=== PATIENT | male | born 1945 | race Caucasian/White ===

== ENCOUNTER → 2017-07-22 12:11 | Outpatient (CLI) | payer MEDICARE, SELFPAY ==
[2017-07-22 13:22] LABS: Prostate Specific Ag, Diagnost 1.13 ng/mL (0.0-4.0)
== END ==
PROVIDERS: Visit Provider Urology
DX: R39.89 Other symptoms and signs involving the genitourinary system (principal); N40.0 Benign prostatic hyperplasia without lower urinary tract symptoms
CPT/HCPCS: 36415; 84153

== ENCOUNTER → 2018-07-21 12:27 | Outpatient (CLI) | payer MEDICARE, SELFPAY ==
[2018-07-21 14:06] LABS: Prostate Specific Ag Screen 0.8 ng/mL (0.0-4.0)
== END ==
PROVIDERS: Visit Provider Urology
DX: Z12.5 Encounter for screening for malignant neoplasm of prostate (principal)
CPT/HCPCS: 36415; G0103

== ENCOUNTER → 2019-07-27 12:08 | Outpatient (CLI) | payer MEDICARE, SELFPAY | PROVIDERS: Visit Provider Urology | DX: Z12.5 Encounter for screening for malignant neoplasm of prostate (principal) | CPT/HCPCS: 36415; G0103 ==

== ENCOUNTER → 2020-04-03 10:15 | Outpatient (CLI) | payer MEDICARE, SELFPAY ==
[2020-04-03 10:51] LABS: Basophils # 0.1 K/mm3 (0-0.2); Basophils % 1.2 % (0.1-2.0); Eosinophils # 0.2 K/mm3 (0.0-0.4); Eosinophils % 2.5 % (0.1-12.0); Hematocrit 39.4 % (42.0-52.0); Hemoglobin 13.2 g/dL (14.1-18.0); Lymphocytes # 1.8 K/mm3 (0.7-4.5); Lymphocytes % 25.5 % (10-50); Mean Corpuscular HGB Conc 33.4 g/dL (31.8-35.4); Mean Corpuscular Hemoglobin 31.3 pg (27.0-31.2); Mean Corpuscular Volume 93.7 fl (80-94); Mean Platelet Volume 7.1 fl (7.4-10.4); Monocytes # 0.5 K/mm3 (0.1-1.0); Neutrophils # 4.5 K/mm3 (1.8-7.8); Neutrophils % 63.8 % (37.0-80.0); Platelet Count 357 K/mm3 (142-424); Red Blood Count 4.21 M/mm3 (4.60-6.20); Red Cell Distribution Width 13.7 % (11.5-17.5); White Blood Count 7.1 K/mm3 (4.8-10.8)
[2020-04-03 12:16] LABS: Chloride 96 mmol/L (98-107); Potassium 5.2 mmoL/L (3.5-5.1); Sodium 131 mmol/L (136-145)
[2020-04-03 12:19] LABS: Anion Gap 14.2 mEq/L (5-15); Blood Urea Nitrogen 14 mg/dl (9-20); Calcium 10.3 mg/dl (8.4-10.2); Carbon Dioxide 26 mmol/L (22.0-30.0); Estimated Glomerular Filt Rate 82 ml/min (>60); GFR (African American) 100 ML/MIN (>60); Glucose 106 mg/dl (74-100)
[2020-04-03 12:43] LABS: Coronavirus 19 IgG Antibody Negative (Negative); Coronavirus 19 IgM Antibody Negative (Negative)
== END ==
PROVIDERS: Visit Provider Urology
DX: R31.0 Gross hematuria (principal); Z01.812 Encounter for preprocedural laboratory examination; Z20.822 Contact with and (suspected) exposure to COVID-19
CPT/HCPCS: 36415; 80048; 85025; 86328

== ENCOUNTER 2020-04-05 07:40 | Day surgery (SDC) | payer MEDICARE, SELFPAY ==
[2020-03-28 12:43] VITALS: BMI 24.7
[2020-04-02 11:10] VITALS: BMI 24.7
[2020-04-05] VITALS (13 sets, daily range): BP systolic 97–159; BP diastolic 54–86; PULSE 60–91; RESP 18; TEMP 36.4–43; O2SAT 9–99
--- NOTE | 2020-04-05 09:45 | HMH.ANESCL ---
[facility] Anesthesia Checklist - Patient Identification Patient Identification: Arm Band, Verbal (Name & ) - Structural Data Admitted From: Home Planned Operative Procedure/s: cysto turb Consent for Planned Operative Procedure(s) Verified: Yes Verified Documents: Surgical Consent - Anesthesia Plan Anesthesia Risk discussed: Yes Anesthesia Plan: Verified ASA Class: III Anesthesia Type: General [facility] History Medical History: Reports:: Hyperlipidemia, Hypertension, Transient Ischemic Attacks (TIA) Denies:: Cancer, Diabetes Mellitus Type 1, Diabetes Mellitus Type 2, Internal Pacemaker, MRSA, Seizures *Have you ever received a pneumonia vaccine?: Yes *Have you received a flu vaccine this season?: Yes Other Medical History: Reports: Arthritis Anesthesia experience/problems:: none Other Surgeries: Yes: Appendectomy, Colonoscopy. No: Pacemaker Amputation: No Fractures: No - *Social History Last grade of school completed: High school graduate Smoking Status: Former smoker Tobacco Type: cigarettes Alcohol Intake: current Alcohol Intake Frequency:: 0-2 drinks per day Substance Use Type: denies use *Occupational Status:: retired Housing: house Household Members: family *Travel in the last 8 weeks: None Family Hx:: Unable to obtain, No significant family history
--- NOTE | 2020-04-05 10:21 | HMH.ANESI ---
[facility] Anesthesia Record Part I Intake, IV Amount: 900 Estimated blood loss (mL): 2 Urine output (mL): 0 Blood Pressure: 97/60 SaO2: 99 Pulse Rate: 90 Respiratory Rate: 18 Temperature: 97.6 F Patient is:: Awake Stable to PACU at:: 10:23
--- NOTE | 2020-04-05 10:47 | P.OP_ITS ---
Date of procedure: 04/05/20 Pre-op Diagnosis:: Bladder tumors, 4 cm Post-op Diagnosis:: Bladder tumor 4 cm Procedure performed:: Transurethral resection of bladder tumor, 4 cm Surgeon:: Mariano Lozano MD N[employer] CLUB MANAGER:: Other (meg) Anesthesia: GETA Estimated blood loss (mL): 0 Clinical Note:: Patient is a 75-year-old white male with recent gross hematuria. CT scan at [facility] shows a bladder tumor in the upper portion of the bladder. Patient presents today for urologic management. Operative findings:: 4 cm sessile bladder tumors posterior anterior bladder wall Operative note:: Patient taken to the operating room after informed consent was obtained. Is placed on the operating table in the supine position and general anesthesia administered. Preoperative antibiotics and sequential compression devices placed. Patient then placed into the dorsal lithotomy position prepped draped in the standard surgical fashion. The 20 Cameroonian cystoscope passed into the urethra and into the bladder without difficulty. The bladder was examined with the 30 and 70 degree lens. There was a 4 cm bladder tumor noted in the posterior anterior portion of the bladder. It was below the bladder dome. The cystoscope removed and a 26 Cameroonian resectoscope sheath with obturator passed into the bladder without difficulty. The resectoscope was then used to resect the tumor in its entirety. Hayes like it was deeper than I was able to get under and it was very broad-based. All visible tumor was resected and the base of the tumor was fulgurated. The specimens were irrigated and sent for pathology. Scope was removed and a 22 Cameroonian three-way catheter in the bladder without difficulty. 10 cc placed in the balloon. Was placed to dependent drainage and a plug placed into the third port. We will observe the patient in the recovery room and hopefully discharge home later today without catheter. Condition: stable Disposition: PACU Specimens:: Bladder tumor Complications:: None
--- NOTE | 2020-04-05 12:01 | SUR.PHASEII ---
DR SIGALA WAS AT BEDSIDE 1245, TO [facility] BEFORE DISCHARGE.
--- NOTE | 2020-04-05 12:02 | SUR.PHASEII ---
INSTRUCTED PT AND SON THAT IF COULD NOT URINATE OR WASN'T URINATING VERY MUCH AT HOME THIS AFTEROON AND EVENING TO CALL Lise W[facility]IE OR GO TO ER. VERBALIZED UNDERSTANDING.
== END 2020-04-05 12:01 | disposition home or self-care (01) ==
PROVIDERS: PCP Family Medicine; Visit Provider Urology
PROC: 0TJB8ZZ Inspection of Bladder, Via Natural or Artificial Opening Endoscopic (ICD-10-PCS; CPT 52000; principal; 2020-04-05 09:00)
DX: I10 Essential (primary) hypertension (principal); E78.5 Hyperlipidemia, unspecified; Z86.73 Personal history of transient ischemic attack (TIA), and cerebral infarction without residual deficits; M19.90 Unspecified osteoarthritis, unspecified site; Z90.49 Acquired absence of other specified parts of digestive tract; Z87.891 Personal history of nicotine dependence; Z79.899 Other long term (current) drug therapy; C67.4 Malignant neoplasm of posterior wall of bladder
CPT/HCPCS: 52235; 88307; 88342; 96374